=== PATIENT | female | born 1975 | race Caucasian/White ===

== ENCOUNTER 2017-11-06 15:05 | Inpatient (IN) | payer BC, OTHER ==
[~2017-11-06] VITALS: Ht 163.8 cm; Wt 49.9 kg
--- NOTE | 2017-11-06 18:31 | NUR ---
PRE ADMISSION Patient in intake office at 1800, Patient appears unkempt, racing thoughts and hyper verbal, pt with uncombed hair and odorous. Noted with avoidant eye contact. Noted with flat and depressed affect with anxious mood. Patient currently intoxicated, smells of alcohol. Patient noted with inability to sit still, fidgety, restless and anxious. BP: 130/96 HR: 100 o2 sat: 97% room air, temp: 98.2, pain level 0/10. Patient reports here to detox off of : etoh, Xanax, [place], and substance use of: methamphetamine, and marijuana. Patient repots history of seizure due to overdose. Patient reports two episodes of blackouts. Patient denies any food or drug allergies. Educated patient regarding unit policies and procedures.
[2017-11-06] MEDS ORDERED: DICL75TA5 PO (19:22)
[2017-11-06] MEDS ORDERED: VIT1TABL81 PO (19:22)
[2017-11-06] MEDS ORDERED: BUPR200T2 PO (19:22)
[2017-11-06] MEDS ORDERED: DULO30CA2 PO (19:22)
[2017-11-06] MEDS ORDERED: GABA-534 PO (19:22)
--- NOTE | 2017-11-06 19:30 | NUR ---
Start Of Shift Patient is a 42 yr old female who was admitted this evening 11/06/17 for a medically supervised withdrawal from Alcohol, Benzodiazepines, opiates and she also states she occasionally uses Methamphetamines. Patient is in her room at this time, resting on bed with eyes open, padded side rails up x2. I will continue with her initial assessment after rounds of all my patients.
[2017-11-06 20:00] VITALS: BP 127/85
[2017-11-06] MEDS ORDERED: MAGNESIUM HYDROXIDE 30 ML LIQUID UDC PO PRN (20:15)
[2017-11-06] MEDS ORDERED: BUPRENORPHINE HCL 2 MG TAB.SUBL SL PRN (20:15)
[2017-11-06] MEDS ORDERED: LOPERAMIDE HCL 2 MG CAPSULE PO PRN ×2 (20:15)
[2017-11-06] MEDS ORDERED: ACETAMINOPHEN 325 MG TABLET PO PRN (20:15)
[2017-11-06] MEDS ORDERED: ONDANSETRON 4 MG/2 ML VIAL IM PRN (20:15)
[2017-11-06] MEDS ORDERED: LORAZEPAM 1 MG TABLET PO PRN (20:15)
[2017-11-06] MEDS ORDERED: DICYCLOMINE HCL 20 MG TABLET PO PRN (20:15)
[2017-11-06] MEDS ORDERED: ONDANSETRON ODT 4 MG TAB.RAPDIS SL PRN (20:15)
[2017-11-06] MEDS ORDERED: LORAZEPAM 2 MG/1 ML VIAL IM PRN (20:15)
[2017-11-06] MEDS ORDERED: MAG HYDROX/AL HYDROX/SIMETH 30 ML LIQUID UDC PO PRN (20:15)
[2017-11-06] MEDS ORDERED: THIAMINE HCL 200 MG/2 ML VIAL IM ONE (20:15)
[2017-11-06 20:32] LABS: *URINE HCG, QUAL NEGATIVE (NEGATIVE)
[2017-11-06 20:32] LABS: *AMPHETAMINE, URINE POSITIVE (NEGATIVE); *BARBITURATE, URINE NEGATIVE (NEGATIVE); *CANNABINOID, URINE POSITIVE (NEGATIVE); *COCCAINE, URINE NEGATIVE (NEGATIVE); *OPIATE, URINE POSITIVE (NEGATIVE); *PHENCYCLIDINE SCREEN,URINE NEGATIVE (NEGATIVE)
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
[2017-11-06] MEDS: GABAPENTIN 400 MG CAPSULE PO PRN (21:27)
[2017-11-06] MEDS: IBUPROFEN 600 MG TABLET PO PRN (21:27)
[2017-11-06] MEDS: LORAZEPAM 1 MG TABLET PO PRN (21:27)
--- NOTE | 2017-11-06 21:30 | NUR ---
WA 21 patients withdrawal symptoms include : Diaphoresis , chills, bilateral hand tremors, headache,neck and hip pain, difficulty thinking clearly, she is hyperverbal and has flight of ideas and loose thoughts. Ativan 2 MG PO , Long 600 MG Po and gabapentin 400 MG PO all given as PRN's. Addendum: 11/07/17 at 0204 by BENITO JIMENEZ RN Lelo SCOTT
--- NOTE | 2017-11-06 21:30 | NUR ---
PRN Motrin 600 MG PO given for headache and neck pain 7/10 Gabapentin 400 MG PO given for neck and hip pain 7/10 Ativan 2 MG PO given for increased anxiety/agitation and CIWA 21
[2017-11-06 21:45] LABS: BASOPHILS # (AUTO) 0.1 K/uL (0.0-8.0); BASOPHILS % (AUTO) 0.9 % (0.0-2.0); EOSINOPHILS # (AUTO) 0.1 K/uL (0.0-0.7); HEMATOCRIT 41.9 % (31.2-41.9); HEMOGLOBIN 14.6 g/dL (10.9-14.3); LYMPHOCYTES # (AUTO) 1.6 K/uL (20.0-40.0); LYMPHOCYTES % (AUTO) 25.5 % (20.5-51.5); MEAN CORPUSCULAR HEMOGLOBIN 32.9 uug (24.7-32.8); MEAN CORPUSCULAR HGB CONC 35 g/dL (32.3-35.6); MEAN CORPUSCULAR VOLUME 94.6 fL (75.5-95.3); MONOCYTES # (AUTO) 0.4 K/uL (2.0-10.0); MONOCYTES % (AUTO) 7.2 % (0.0-11.0); NEUTROPHILS % (AUTO) 64.4 % (38.5-71.5); PLATELET COUNT (AUTO) 264 K/uL (179-408); RED BLOOD CELL COUNT(AUTO) 4.43 MIL/uL (3.63-4.92); WHITE BLOOD COUNT (AUTO) 6.2 K/uL (3.8-11.8)
[2017-11-06 21:57] LABS: ETHANOL < 3 MG/DL (0-0)
[2017-11-06 21:58] LABS: ALANINE AMINOTRANSFERASE 31 U/L (14-59); ALKALINE PHOSPHATASE 53 U/L (50-136); AMYLASE 72 U/L (25-115); ASPARTATE AMINOTRANSFERASE 24 U/L (15-37); BILIRUBIN,TOTAL 0.4 mg/dL (0.2-1.0); CARBON DIOXIDE 30 mmol/L (21-32); CHLORIDE 105 mmol/L (98-107); CREATININE 1.1 mg/dL (0.6-1.3); GLUCOSE 90 mg/dL (74-106); LIPASE 215 U/L (73-393); MAGNESIUM 1.9 mg/dL (1.8-2.4); POTASSIUM 4.1 mmol/L (3.5-5.1); TOTAL PROTEIN, SERUM 6.4 g/dL (6.4-8.2); UREA NITROGEN, BLOOD 11 mg/dL (7-18)
--- NOTE | 2017-11-06 22:30 | NUR ---
PRN Reassess Patient is asleep in bed, breathing even and unlabored, padded side rails up x2, call light within reach
[2017-11-06] MEDS ORDERED: HYDR25PO2 MC (22:31)
[2017-11-06 22:36] LABS: THYROID STIMULATING HORMONE 2.104 mIU/mL (0.358-3.740)
--- NOTE | 2017-11-07 | NUR ---
CIWA deferred VS deferred, patient is sound asleep in bed, breathing even and unlabored, padded side rails upx2.
--- NOTE | 2017-11-07 04:00 | NUR ---
CIWA Deferred Patient is sound asleep, breathing even and unlabored, VS deferred at this time.
--- NOTE | 2017-11-07 06:25 | NUR ---
End Of Shift: Patient is a 42 yr old female who was admitted to [facility] yesterday 11/06/17 for a medically supervised withdrawal from Alcohol, Benzodiazepines ( Xanax) and Opiates ( [place]), she also admits to smoking Meth and Marijuana, she has not been placed on any taper as of yet but has PRN Ativan and Subutex available. Patient is unkempt and disheveled, she looks malnourished and thin, she has a history of Bulimia. PRN medications given on this shift: Motrin for neck and hip pain, Gabapentin for joint pain and Ativan 2 MG PO for increased anxiety and CIWA of 21. Her withdrawal symptoms present as aches, chills, emotionally volatile, lethargy and restlessness, she has loose thoughts and flight of ideas. She had a fluid intake this shift of 1035 ML, 2 Voids and 0 BM, her last CIWA was 21 @ 2130 .She slept for 10 hours. Continue to follow MD plan of care and offer support as needed. Endorsed to day shift.
--- NOTE | 2017-11-07 08:01 | NUR ---
Start of Shift Pt is a 42 y/o F admitted on 11/06/17 for medically supervised ETOH, xanax, and norco withdrawal. Pt has not been placed on any taper yet, only prns for management of w/d. Received pt laying in bed sleeping, respirations even and unlabored. Pt has a disheveled and thin appearance. Last CIWA of 21 and pt has been given ativan 2 mg, ibuprofen, and gabapentin prns last shift. Slept 10 hrs. Side rails upx2 and padded, bed in lowest postion. Call light is within reach. Will continue to monitor.
[2017-11-07 08:03] VITALS: BP 122/84
[2017-11-07] MEDS ORDERED: TUBERCULIN,PURIF.PROT.DERIV. 5 TU/0.1 ML TEST ID ONE (09:00)
[2017-11-07] MEDS: MULTIVITAMINS,THERAPEUTIC TABLET PO SCH (09:44)
[2017-11-07] MEDS: THIAMINE HCL 100 MG TABLET PO SCH (09:44)
[2017-11-07] MEDS: FOLIC ACID 1 MG TABLET PO SCH (09:44)
[2017-11-07] MEDS: LORAZEPAM 1 MG TABLET PO PRN (09:45)
--- NOTE | 2017-11-07 09:45 | NUR ---
CIWA 20 Pt has a disheveled and thin appearance depressive and anxious mood, with an avoidant eye contact and mumbling when speaking. Pt presents anxiety, agitation, restlessness, sweating, clammy skin, tingling of the hands, headache, stomach cramps, nausea, difficulty thinking, difficulty concentrating, dysphoria and anhedonia. Ativan 2 mg po prn given with scheduled meds.
--- NOTE | 2017-11-07 09:45 | NUR ---
PRN Ativan 2 mg po prn given for CIWA 20; pt presents sweating, tingling sensation of the hands, tremors, nausea, anxiety and agitation. Will monitor and reassess.
[2017-11-07] MEDS: DULOXETINE 30 MG CAPSULE.DR PO SCH (09:53)
[2017-11-07] MEDS: buPROPion XL 150 MG TAB.SR.24H PO SCH (09:54)
[2017-11-07 12:30] VITALS: BP 122/86
--- NOTE | 2017-11-07 12:30 | NUR ---
CIWA 20 Pt continues to presents cold/hot flashes, anxiety, agitation, restlessness, sweating, clammy skin, tingling of the hands, headache, stomach cramps, nausea, difficulty thinking, difficulty concentrating, dysphoria and anhedonia. Pt also c/o neck and lower hip pain. Scheduled meds and Ativan taper to continue. Addendum: 11/07/17 at 1422 by TRISHA LAM RN CIWA 17
[2017-11-07] MEDS: METHOCARBAMOL 750 MG TABLET PO PRN (13:51)
[2017-11-07] MEDS: GABAPENTIN 400 MG CAPSULE PO PRN ×2 (13:51→20:48)
--- NOTE | 2017-11-07 13:51 | NUR ---
PRN Gabapentin 400 mg and robaxin 750 mg po prns given for neck and below the hip pain. Will monitor and reassess.
[2017-11-07] MEDS: LORAZEPAM 1 MG TABLET PO SCH ×3 (13:55→20:48)
--- NOTE | 2017-11-07 14:05 | NUR ---
Therapist prompted client to attend group therapy.
--- NOTE | 2017-11-07 14:51 | NUR ---
Reassessment Pt reports med as effective in decreasing pain intensity. Will monitor and reassess.
[2017-11-07 16:00] VITALS: BP 144/99
--- NOTE | 2017-11-07 16:00 | NUR ---
1600 CIWA deferred d/t sleep.
--- NOTE | 2017-11-07 17:39 | NUR ---
Scheduled Ativan 2 mg po for 1700 held due to pt in deep sleep. Respirations even and unlabored; RR 18. Safety measures in place. Will continue to monitor.
--- NOTE | 2017-11-07 18:35 | NUR ---
End Of Shift Pt has been isolative in room, sleeping mostly throughout the day. Last CIWA 17 @1230. Pt been placed on a 5 day ativan taper starting today. Pt has been placed on 1:1 sitter for 1 hr after meals. Gabapentin 400 mg and robaxin 750 mg po PRNS given and were effective. Pt has been given Ativan 2mg po prn for CIWA 20 @0945. Pt ate 0/25/25% of meals. Safety measures in place.
--- NOTE | 2017-11-07 19:30 | NUR ---
Start Of Shift Patient is a 42 yr old female who was admitted to [facility] on 11/06/17 for a medically supervised withdrawal from ETOH , Benzos and Opiates, she also admitted to using Meth and Marijuana occasionally, she has been placed on a 5 day Ativan taper and this is day 1. PRN medications given on this shift : Gabapentin and Robaxin, she is on a 1:1 after meals due to bulimia and a history of binging and purging. Per day shift report she has been lethargic but arousable all day. Currently she is asleep in bed, padded side rails upx2, arousable to name. Last CIWA 17 @ noon. Continue to follow MD plan of care and offer support as needed.
[2017-11-07 20:00] VITALS: BP 94/65
--- NOTE | 2017-11-07 20:00 | NUR ---
RAVI 16 Patient presents with lethargy, decreased appetite, diaphoresis, chills, pins and needles in hands, she has a sad flat affect and appears depressed. Motrin 600MG PO and Gabapentin 400mg PO given for neck/hip pain along with scheduled 2 MG Ativan PO
--- NOTE | 2017-11-07 20:00 | NUR ---
COWS 10 withdrawal symptoms include bilateral hand tremors, aching joints, piloerection and chills
[2017-11-07] MEDS: IBUPROFEN 600 MG TABLET PO PRN (20:48)
--- NOTE | 2017-11-07 20:50 | NUR ---
PRN Motrin 600mg PO and Gabapentin 400mg PO given for hip/neck pain 08/23 will monitor and reassess
--- NOTE | 2017-11-07 21:50 | NUR ---
PRN Reassess Patient is asleep in bed, breathing even and unlabored, padded side rails up x2.
--- NOTE | 2017-11-08 | NUR ---
COWS Deferred patient sound asleep in bed, breathing even and unlabored, VS and COWS deferred to allow patient to sleep uninterrupted.
--- NOTE | 2017-11-08 | NUR ---
CIWA Deferred patient sound asleep in bed, breathing even and unlabored, VS and CIWA deferred to allow patient to sleep uninterrupted.
--- NOTE | 2017-11-08 04:03 | NUR ---
CIWA/ COWS Deferred patient sound asleep in bed, breathing even and unlabored, VS and CIWA deferred to allow patient to sleep uninterrupted.
--- NOTE | 2017-11-08 06:34 | NUR ---
End Of Shift: Patient is a 42 yr old female who was admitted to [facility] on 11/06/17 for a medically supervised withdrawal from ETOH, Benzodiazepines, opiates and who also admits to using Methamphetamines and Marijuana. She has been placed on a 5 day Ativan taper and this is day 2. PRN medications given on this shift : Motrin and Gabapentin. Her withdrawal symptoms include lethargy, chills, diaphoresis, decreased appetite, restless legs , pins and needles in hands and feet and bilateral hand tremors. she has a flat depressed affect. She has slept all night and has not left her room. She had a fluid intake of 1300 ML, 2 Voids and 0 BM, her last CIWA was 16 @ 8pm. She slept for 11 hours. Continue to follow MD plan of care and offer support and encouragement as needed. Endorsed to production supervisor off shift. Addendum: 11/08/17 at 0701 by BENITO JIMENEZ RN [id number]: PRN Motrin, Robaxin and Gabapentin given
[2017-11-08] MEDS: IBUPROFEN 600 MG TABLET PO PRN ×2 (06:55→21:10)
[2017-11-08] MEDS: METHOCARBAMOL 750 MG TABLET PO PRN (06:55)
[2017-11-08] MEDS: GABAPENTIN 400 MG CAPSULE PO PRN ×2 (06:55→21:32)
--- NOTE | 2017-11-08 06:55 | NUR ---
PRN Motrin 600mg PO Robaxin 750 mg PO Gabapentin 400mg PO All given for complaints of neck/back pain/ discomfort
[2017-11-08 08:00] VITALS: BP 100/65
--- NOTE | 2017-11-08 08:20 | NUR ---
START OF SHIFT: Received Pt. A/O X 4. She is disheveled and presents with blunted affect and depressed mood. She denies S/I and H/I. She reports restlessness,anxiety,fatigue,irritability and mild body aches. Ativan taper in progress to manage s/s of w/d. RAVI 13 COWS 10 1:1 post meals r/t bulimia. She denies vomiting after meals since her admission here. Encouraged a shower today to promote wellness. Encouraged group attendance to improve coping skills and prevent relapse. Will continue to monitor and manage s/s of w/d.
[2017-11-08] MEDS: FOLIC ACID 1 MG TABLET PO SCH (09:56)
[2017-11-08] MEDS: buPROPion XL 150 MG TAB.SR.24H PO SCH (09:57)
[2017-11-08] MEDS: MULTIVITAMINS,THERAPEUTIC TABLET PO SCH (09:57)
[2017-11-08] MEDS: LORAZEPAM 1 MG TABLET PO SCH ×3 (09:57→21:10)
[2017-11-08] MEDS: THIAMINE HCL 100 MG TABLET PO SCH (09:57)
[2017-11-08] MEDS: DULOXETINE 30 MG CAPSULE.DR PO SCH (09:58)
[2017-11-08 10:11] LABS: HEPATITIS B SURFACE AG Negative (Negative)
[2017-11-08 12:00] VITALS: BP 115/81
--- NOTE | 2017-11-08 12:47 | NUR ---
COWS/CIWA Deferred as Pt is asleep.
[2017-11-08 16:00] VITALS: BP 112/73
--- NOTE | 2017-11-08 16:30 | NUR ---
COWS/CIWA Deferred. Pt is asleep. 1500 meds held.
--- NOTE | 2017-11-08 18:25 | NUR ---
END OF SHIFT: Pt continues on Ativan taper to manage s/s of w/d which include body aches,anxiety,irritability ,depression and fatigue. GARRICKWA 13 COWS 10 this AM . She slept most of shift and COWS and CIWA deferred X 2 this afternoon. 1500 meds held. She is on 1:1 post meals r/t bulimia. She did not shower as encouraged and states maybe she will later. She denies S/I and H/I. [facility].
--- NOTE | 2017-11-08 19:30 | NUR ---
START OF SHIFT Pt is a 42 yr old female admitted to [facility] for a medically supervised withdrawal from ETOH , Benzos and Opiates; continues to be on Ativan taper as ordered and has been tolerating well. Pt is on a 1:1 close observation after meals due to bulimia and a history of binging and purging. Per day shift report she has been lethargic all day. Last COWS 13; CIWA 10 this AM. Pt received in bed awake, alert and oriented x 3; disheveled and unkempt with food and clothing scattered all over her living area; c/o having low energy, feels likes I am falling apart. Also c/o feeling anxious with pain all over her body,neck and hip area.Emotional support provided, PO fluids encouraged. All safety measures in place, call light is within reach, will continue to monitor for safety.
[2017-11-08 20:00] VITALS: BP 120/90
--- NOTE | 2017-11-08 20:48 | NUR ---
PRN ZOFRAN SL GIVEN ORDERED FOR C/O NAUSEA.NO C/O VOMITING NOTED. WILL CONTINUE TO MONITOR.
[2017-11-08] MEDS: diphenhydrAMINE 50 MG CAPSULE PO PRN (21:10)
--- NOTE | 2017-11-08 21:10 | NUR ---
PRN MOTRIN GIVEN ORDERED FOR C/O GENERALIZED ACHES AND PAIN.PT IS C/O INSOMNIA,SAID " I SLEPT ALL DAY,AND NOW I AM WIDE AWAKE AND WILL NOT BE ABLE TO SLEEP".PRN BENADRYL 50 MG PO GIVEN TO HELP SLEEP.WILL MONITOR.
--- NOTE | 2017-11-08 21:32 | NUR ---
PRN NEURONTIN 400 MG PO GIVEN FOR C/O NECK AND HIP PAIN.WILL MONITOR.
--- NOTE | 2017-11-08 21:48 | NUR ---
PRN ZOFRAN IS EFFECTIVE.NAUSEA IMPROVED.
--- NOTE | 2017-11-08 22:30 | NUR ---
PRN REASSESSMENT PT IS CALM AND RESTING IN BED WITH EYES CLOSED.NO C/O PAIN OR S/S OF DISTRESS NOTED; BREATHING IS EVEN AND NON LABORED,WILL CONTINUE TO MONITOR.
[2017-11-09] VITALS: BP 112/84
--- NOTE | 2017-11-09 | NUR ---
COWS/CIWA Deferred due to Pt being asleep.
--- NOTE | 2017-11-09 04:00 | NUR ---
COWS/CIWA Deferred due to Pt being asleep; v/s refused.
--- NOTE | 2017-11-09 07:28 | NUR ---
END OF SHIFT Pt is a 42 yr old female admitted to [facility] for a medically supervised withdrawal from ETOH , Benzos and Opiates; continues to be on Ativan taper as ordered and has been tolerating well. Pt is on a 1:1 close observation after meals due to bulimia and a history of binging and purging. Last COWS 13; CIWA 9. Pt received PRN med-Zofran,Motrin,Neurontin and Benadryl with good effect;she slept 8 hours,fluid intake was 1105 mls,voided x 3. PO fluids encouraged. All safety measures in place, call light is within reach, will continue to monitor for safety.
--- NOTE | 2017-11-09 07:50 | NUR ---
START OF SHIFT NOTE Received report from night nurse 42 year old female admitted for ETOH,Benzo and Opioids withdrawal and continues on 5 Ativan taper tolerating well. Per endorsement patient received PRN Zofran, Motrin, Gabapentin,Benadryl tolerated well, slept for 8 hours and last CIWA-10,COWS-13. Received patient with blunt facial expression, anxious, agitated, bilateral hand tremors, unkempt room, dirty room linens on the floor,racing thoughts. Breathing normal no SOB noted. Skin intact warm and dry to touch. All safety measures in place call light within reach. Will cont to monitor.
[2017-11-09 08:00] VITALS: BP 115/83
[2017-11-09] MEDS: DULOXETINE 30 MG CAPSULE.DR PO SCH (09:39)
[2017-11-09] MEDS: buPROPion XL 150 MG TAB.SR.24H PO SCH (09:39)
[2017-11-09] MEDS: FOLIC ACID 1 MG TABLET PO SCH (09:39)
[2017-11-09] MEDS: MULTIVITAMINS,THERAPEUTIC TABLET PO SCH (09:39)
[2017-11-09] MEDS: THIAMINE HCL 100 MG TABLET PO SCH (09:39)
[2017-11-09] MEDS: LORAZEPAM 1 MG TABLET PO SCH ×4 (09:39→21:00)
--- NOTE | 2017-11-09 09:39 | NUR ---
CIWA/COWS ASSESSMENT CIWA-11, COWS-8, Patient has a sad flat effect, presented with anxiety, agitation, restless, diaphoresis, light headed, body aches, patient was given scheduled medications. Will cont to monitor.
--- NOTE | 2017-11-09 10:01 | NUR ---
Client was prompted to attend twice daily group therapy sessions.
[2017-11-09] MEDS: KETOROLAC TROMETHAMINE 30 MG INJ IM PRN (10:20)
--- NOTE | 2017-11-09 10:20 | NUR ---
PRN TORADOL Patient c/o bilateral hip pain 11/23, PRN Toradol 30mg IM given as ordered. Will cont to monitor and reassess.
--- NOTE | 2017-11-09 10:50 | NUR ---
TORADOL REASSESSMENT Per patient bilateral hip pain lower to 4/10 Toradol was effective.
[2017-11-09 12:00] VITALS: BP 120/88
--- NOTE | 2017-11-09 12:00 | NUR ---
CIWA/COWS ASSESSMENT CIWA-12, COWS-7, Patient continues to presented with anxiety, agitation, restless, diaphoresis, light headed, body aches, patient due for schedule medication. Will cont to monitor.
[2017-11-09 16:00] VITALS: BP 119/86
--- NOTE | 2017-11-09 16:18 | NUR ---
CIWA/COWS ASSESSMENT CIWA-11, COWS-6, Patient continues to presented with anxiety, agitation, restless, diaphoresis,pins and needles patient was given her schedule medication. Will cont to monitor.
--- NOTE | 2017-11-09 19:04 | NUR ---
END OF SHIFT NOTE Gave report to night nurse, 42 year old female admitted for ETOH and Opioids withdrawal and continues with her Ativan taper tolerating well. Patient continues to exhibit flat effect, anxious, agitated, restless, bilateral hand tremors, sweats. During shift patient was given scheduled medication and PRN Toradol, noted to be effective. Last CIWA score 11, COWS-6. Encourage patient to attend groups activities to learn new coping skills.Skin intact warm and dry to touch. All safety measures in place, call light within reach. Patient endorse to night nurse in stable condition.
--- NOTE | 2017-11-09 19:30 | NUR ---
START OF SHIFT Pt is a 42 yr old female admitted to [facility] for a medically supervised withdrawal from ETOH , Benzos and Opiates; continues to be on Ativan taper as ordered and has been tolerating well. Pt is on a 1:1 close observation after meals due to bulimia and a history of binging and purging. Last COWS 6; CIWA 11. Per report Pt was given Toradol IM for pain and it was effective.Pt received sleeping in bed, disheveled and unkempt, living area is cluttered;breathing is even and non labored,no s/s of distress noted All safety measures in place, call light is within reach, will continue to monitor for safety.
[2017-11-09 20:00] VITALS: BP 117/92
--- NOTE | 2017-11-09 20:00 | NUR ---
COWS/CIWA DEFERRED DUE TO PT BEING ASLEEP.
--- NOTE | 2017-11-09 21:00 | NUR ---
PT IS SLEEPY,REFUSED TO TAKE SCHEDULED BEDTIME MEDICATIONS.
--- NOTE | 2017-11-10 | NUR ---
COWS/CIWA DEFERRED; V/S REFUSED. PT IS IN DEEP SLEEP,ALL SAFETY MEASURES IN PACE,COWS/CIWA DEFERRED; V/S REFUSED. WILL CONTINUE TO MONITOR.
[2017-11-10] MEDS ORDERED: LORAZEPAM 1 MG TABLET PO ONE (01:15)
[2017-11-10] MEDS: KETOROLAC TROMETHAMINE 30 MG INJ IM PRN ×3 (01:24→20:03)
--- NOTE | 2017-11-10 01:24 | NUR ---
PRN MED/ONE TIME ORDER PT WOKE UP ASKING FOR MEDICATIONS,STATED " I DID NOT GET ANY MEDICATIONS".PT WAS REMINDED THAT SHE HAD REFUSED 2100 MEDS BUT SHE DENIED IT.ATIVAN 1 MG PO GIVEN ONE TIME ORDER.PT ASLO C/O PAIN IN HER NECK 11/23.PRN TORADOL 30 MG IM GIVEN ORDERED.WILL CONTINUE TO MONITOR.
--- NOTE | 2017-11-10 02:24 | NUR ---
PRN REASSESSMENT Pt is calm and resting in bed with eyes closed.PRN Toradol is effective.No c/o pain or s/s of distress noted,will continue to monitor.
--- NOTE | 2017-11-10 04:00 | NUR ---
COWS/CIWA DEFERRED; V/S REFUSED. PT IS IN DEEP SLEEP,ALL SAFETY MEASURES IN PACE,COWS/CIWA DEFERRED; V/S REFUSED. WILL CONTINUE TO MONITOR.
--- NOTE | 2017-11-10 06:51 | NUR ---
END OF SHIFT Pt is a 42 yr old female admitted to [facility] for a medically supervised withdrawal from ETOH , Benzos and Opiates; continues to be on Ativan taper as ordered and has been tolerating well. Pt is on a 1:1 close observation after meals due to bulimia and a history of binging and purging.Pt slept all night without any problem.PRN Toradol IM was given for neck and back and was effective. Pt slept 10 hours,fluid intake was 1390 mls,voided x 1. Unable to assess for COWS/CIWA due to Pt being asleep. PO fluids encouraged. All safety measures in place, call light is within reach, will continue to monitor for safety. Addendum: 11/10/17 at 0716 by JOSIE PARNELL RN LAST CIWA=11,COWS=6.
--- NOTE | 2017-11-10 07:30 | NUR ---
Start of Shift Mold Closer Helper received report on 42 year old female admitted to [facility] for medical management of ETOH, Benzodiazepine and Opiate withdrawals. Pt endorse NKA, full code and regular diet. Pt endorses chronic neck and back pain. Pt endorses history of seizures, last reported in 2007. PPH of Bipolar, Anxiety, Depression, and Bulimia with Personality DO. Pt is a 1:1 staff following meals. Pt currently on an Ativan taper. NOC reports no CIWA or COWS obtained on NOC. PRN Toradol(pain) administered on NOC, per report. Mold Closer Helper encounters pt in pts room resting with eyes closed, even and unlabored respirations noted. Bed in low position with wheels locked and side rails up x2. Will continue to monitor, support and encourage according to plan of care.
[2017-11-10 08:30] VITALS: BP 109/74
--- NOTE | 2017-11-10 09:00 | NUR ---
CIWA/COWS Deferred Pt is somnolent and lethargic and unable to participate in assessment. Credit Verification Clerk will assess upon pt becoming more receptive. Will continue to monitor, support and encourage according to plan of care.
[2017-11-10] MEDS: THIAMINE HCL 100 MG TABLET PO SCH (09:22)
[2017-11-10] MEDS: FOLIC ACID 1 MG TABLET PO SCH (09:22)
[2017-11-10] MEDS: DULOXETINE 30 MG CAPSULE.DR PO SCH (09:22)
[2017-11-10] MEDS: MULTIVITAMINS,THERAPEUTIC TABLET PO SCH (09:22)
[2017-11-10] MEDS: buPROPion XL 150 MG TAB.SR.24H PO SCH (09:23)
[2017-11-10] MEDS: LORAZEPAM 1 MG TABLET PO SCH ×3 (09:23→20:02)
--- NOTE | 2017-11-10 09:27 | NUR ---
PRN IM Toradol Pt complains of pain 11/23 due to chronic bakc and neck pain and withdrawal related myalgia. Pt states, " I have a messed up spine." Geodetic Surveyor administered medication per order with pt tolerating well. Will continue to monitor, support and encourage according to plan of care.
--- NOTE | 2017-11-10 09:30 | NUR ---
CIWA 12/COWS 10 Pt has fine tremors, diaphoresis, anxiety and restlessness. Pt complains of nausea, with no emesis or diarrhea. Pt complains of chills and body aches. Will continue to monitor, support and encourage according to plan of care.
--- NOTE | 2017-11-10 10:17 | NUR ---
Therapist prompted client to attend group therapy. Client responded that she is not interested at all in any groups or activities. Client reported that she wants to leave and attend to her family. Addendum: 11/10/17 at 1035 by APPLE SUBRAMANIAN Client was sleepy, but reported that she will attend when she is feeling better.
--- NOTE | 2017-11-10 12:00 | NUR ---
CIWA 9/COWS 10 Pt with moist skin, fine tremors and anxiety. Complains of nausea, chills and myalgia. Will continue to monitor, support and encourage according to plan of care.
[2017-11-10 12:22] VITALS: BP 96/63
[2017-11-10 16:30] VITALS: BP 97/66
--- NOTE | 2017-11-10 16:30 | NUR ---
CIWA 9/COWS 9 Pt has fine tremors, nausea, anxiety, moist skin and is restless. Pt is irritable and labile. Will continue to monitor, support and encourage according to plan of care.
--- NOTE | 2017-11-10 18:52 | NUR ---
End of Shift Truckload Owner Operator provided report on 42 year old female admitted to [facility] for medical management of ETOH, Benzodiazepine and Opiate withdrawals. Pt endorse NKA, full code and regular diet. Pt endorses chronic neck and back pain. Pt endorses history of seizures, last reported in 2007. PPH of Bipolar, Anxiety, Depression, and Bulimia with Personality DO. Pt is a 1:1 staff following meals. Pt currently on an Ativan taper. Last CIWA 9 and COWS 9, recorded at 1630. PRN Toradol(pain) administered on this shift. Pt is A/O x4 and makes her needs known. Pt is pre-occupied with internal thoughts and odd socially. Blunted affect with incongruent mood. Pt perseverates on social security paperwork and demands phone calls. Pt is anxious, restless with nausea and muscle pain. Bed in low position with wheels locked and side rails up x2.
--- NOTE | 2017-11-10 19:30 | NUR ---
START OF SHIFT Received 42 year old female patient admitted on 11/06/17 for ETOH, Benzodiazepine and Opiate withdrawal. Pt is alert and oriented x4. She appears to be disheveled and is noted with anxiety, restlessness, body aches, poor eye contact, and chills. She complains of neck and hand achy pain 9/10. She is currently receiving a 5 day Ativan taper and is tolerating well. Per endorsement, she received PRN Toradol. Last COWS: 9, CIWA:9 at 1600. Breathing is even and unlabored, safety measures in place. Will continue to monitor.
[2017-11-10 20:00] VITALS: BP 121/78
--- NOTE | 2017-11-10 20:00 | NUR ---
COWS/CIWA Pt complains of anxiety, restlessness, chills, sweats, and body aches. COWS:10, CIWA: 13. Will continue to monitor.
[2017-11-10] MEDS: diphenhydrAMINE 50 MG CAPSULE PO PRN (20:02)
[2017-11-10] MEDS: METHOCARBAMOL 750 MG TABLET PO PRN (20:02)
--- NOTE | 2017-11-10 20:03 | NUR ---
PRN TORADOL,ROBAXIN, BENADRYL Pt complains of 9/10 hands and lower neck achy pain. Pt also complains of body aches and difficulty falling asleep. PRN Toradol, Robaxin and Benadryl administered as ordered. Will monitor effectiveness. Addendum: 11/11/17 at 0434 by SAWYER KILPATRICK RN Pt also had complaints of heartburn and was given Maalox.
--- NOTE | 2017-11-10 20:33 | NUR ---
PRN TORADOL REASSESSMENT PRN medication effective. Pt is lying in bed with eyes closed and is noted to be asleep. No facial grimacing noted. Breathing is even and unlabored, safety measures in place. Will monitor.
--- NOTE | 2017-11-10 21:03 | NUR ---
PRN ROBAXIN/BENADRYL REASSESSMENT PRN medications effective. Pt is lying in bed with eyes closed and is noted to be asleep. Breathing is even and unlabored, safety measures in place. Will monitor.
[2017-11-11] VITALS: BP 115/72
--- NOTE | 2017-11-11 | NUR ---
COWS/CIWA DEFERRED 0000 COWS/CIWA deferred d/t pt lying in bed with eyes closed and is noted to be asleep. Breathing even and unlabored, safety measures in place. Will monitor.
--- NOTE | 2017-11-11 04:00 | NUR ---
VITALS REFUSED, COWS/CIWA DEFERRED 0400 vitals refused. COWS and CIWA deferred. Pt lying in bed with eyes closed and is noted to be asleep. Breathing even and unlabored, safety measures in place, will continue to monitor.
--- NOTE | 2017-11-11 07:10 | NUR ---
END OF SHIFT Pt is a 42 year old female patient admitted on 11/06/17 for ETOH, Benzodiazepine and Opiate withdrawal. She remains alert and oriented x4. She was noted with anxiety, restlessness, body aches, poor eye contact, and chills. She complains of neck and hand achy pain 9/10 during the shift. She continues on a 5 day Ativan taper and is tolerating well At 2002 she received PRN medications of Toradol, Benadryl, Robaxin and Maalox. Last COWS: 10, CIWA:13 at 1999. Breathing is even and unlabored, safety measures in place. Endorsed to AM shift.
--- NOTE | 2017-11-11 07:15 | NUR ---
Start Of Shift Report received from slot shift manager nurse. Pt is a 42 year old female patient admitted on 11/06/17 for ETOH, Benzodiazepine and Opiate withdrawal. Per slot shift manager nurse, pts last COWS was 10, CIWA was 13 Pt slept for 9 hours. Pt continues on 5 day Ativan taper to manage withdrawal symptoms. Upon start of shift, pt was in bed under the blanket and refused to come out. Pt presented with agitation anxiety and fatigue. Pt being observed by 1:1 sitter post meals related to bulimia. Pt arousals to name. During assessment, Pt is AOx4. Pt stated can I just please get my medication, I just feel tired want to take my medication and want to go back to sleep. Pts room was messy with clothes on the floor and snack wraps all over the table and floor. Educated pt about plan of care for the day. Pt encouraged to attend group and activities during the day. Pt encouraged to drink plenty of fluids in order to help with detox process. Bed in lowest position. Side rails up x2. Call light functioning and within reach. All needs attended and met.
[2017-11-11 08:00] VITALS: BP 105/70
--- NOTE | 2017-11-11 08:00 | NUR ---
CIWA 11/COWS 9 Pt has fine tremors, nausea, anxiety, moist skin and is restless. Pt is irritable and labile. Will continue to monitor, support and encourage according to plan of care.
[2017-11-11] MEDS: FOLIC ACID 1 MG TABLET PO SCH (08:42)
[2017-11-11] MEDS: buPROPion XL 150 MG TAB.SR.24H PO SCH (08:42)
[2017-11-11] MEDS: DULOXETINE 60 MG CAPSULE.DR PO SCH (08:42)
[2017-11-11] MEDS: THIAMINE HCL 100 MG TABLET PO SCH (08:43)
[2017-11-11] MEDS: MULTIVITAMINS,THERAPEUTIC TABLET PO SCH (08:43)
[2017-11-11] MEDS: LORAZEPAM 1 MG TABLET PO SCH ×2 (08:43→20:23)
[2017-11-11] MEDS ORDERED: DULOXETINE 30 MG CAPSULE.DR PO SCH (09:00)
[2017-11-11] MEDS: KETOROLAC TROMETHAMINE 30 MG INJ IM PRN ×2 (09:16→15:28)
--- NOTE | 2017-11-11 09:17 | NUR ---
PRN Pt complained of generalized pain and pain in the neck rating it 8/10 pt given Toradol IM 30mg, pt tolerated well shot given in right gluteus maryanne, no blood upon aspiration. Will continue to monitor
--- NOTE | 2017-11-11 10:17 | NUR ---
PRN REASSESSMENT Pt verbalized decrease in pain to 5/10 , all needs met will continue to monitor
[2017-11-11 12:00] VITALS: BP 102/64
--- NOTE | 2017-11-11 12:00 | NUR ---
CIWA 10/COWS 10 Pt has fine tremors, diaphoresis, anxiety and restlessness. Pt complains of chills and body aches. pt has generalized pain. Pt encouraged to drink more fluids to help with detox process. Will continue to monitor, support and encourage according to plan of care.
[2017-11-11 16:00] VITALS: BP 122/83
--- NOTE | 2017-11-11 16:30 | NUR ---
PRN REASSESSMENT Pt verbalized decrease in pain to 6/10 , all needs met will continue to monitor
--- NOTE | 2017-11-11 19:17 | NUR ---
End of Shift Report given to night worker nurse, Plan of care followed, Vital signs monitored closely Q4H. Withdrawals symptoms were closely monitored, medications given as schedule. Initial CIWA 11 COWS 9. Pt encouraged adequate PO fluid intake as tolerated. Pt presented with sweats flushed face anxiety and tremors during the day. Pt received all of the scheduled medications. Pt received PRN Toradol IM x2 for pain in neck and generalized pain which was effective. Last CIWA 10 COWS 9. Pt reported that Ativan has been working well at controlling the withdrawal symptoms. Pt ate all of the meals. Pt attended all the groups and activities to learn new coping skills to prevent relapse. Pt denies any SI/HI. All safety measures in place, bed in lowest locked position, call light within reach. All needs met and attended.
--- NOTE | 2017-11-11 19:18 | NUR ---
Start of shift note Received report from day shift nurse. Pt is a 42 yo female, A+Ox4, presenting to [facility] for medically supervised ETOH/Benzo/Opiate withdrawal. Pt was also using Methamphetamine and Marijuana. Pt noted to be withdrawn, agitated, anxious, and fatigued. Pt has HX of Bipolar, personality disorder, anxiety, depression, bulimia, and chronic neck/hip pain which will be monitored during shift. Pt is on 5 day Ativan taper, tolerated well. Respirations even and unlabored. Will continue to monitor.
[2017-11-11 20:12] VITALS: BP 114/76
--- NOTE | 2017-11-11 20:12 | NUR ---
COWS and CIWA Assessment COWS: 9 and CIWA: 9. Pt noted with pulse 68, chills, sweat on brow, restlessness, mild diffuse discomfort, stuffy nose, stomach cramps, fine tremors, yawning, anxiety, and agitation. Respirations even and unlabored. Will continue to monitor.
[2017-11-11] MEDS: diphenhydrAMINE 50 MG CAPSULE PO PRN (20:23)
--- NOTE | 2017-11-11 20:23 | NUR ---
PRN Benadryl Pt c/o inability to sleep and requested for PRN Benadryl. Medication given and tolerated well. Will reassess within 1 HR. Will continue to monitor.
--- NOTE | 2017-11-11 21:20 | NUR ---
PRN Benadryl Reassessment Medication effective. Pt is resting well in bed. No s/s of ASE noted at this time. Respirations even and unlabored. Will continue to monitor.
--- NOTE | 2017-11-12 00:15 | NUR ---
V/S refused and COWS and CIWA deferred for sleep. Respirations even and unlabored. Will continue to monitor.
--- NOTE | 2017-11-12 04:35 | NUR ---
V/S refused and COWS and CIWA deferred for sleep. Respirations even and unlabored. Will continue to monitor.
--- NOTE | 2017-11-12 07:00 | NUR ---
End of shift note Pt was continuously noted with fatigue, anxiety, and agitation. Pt remained in room for majority of shift except to get food from kitchen. Pt remained cooperative and compliant with all aspects of treatment. Pt was given PRN Benadryl @2022. Pt is on 5 day Ativan taper, tolerated well. Pt slept for a total of 9 HRS. Last COWS: 9 and Last CIWA: 9 @2011. Respirations even and unlabored. Will endorse to day shift nurse.
--- NOTE | 2017-11-12 07:38 | NUR ---
BEGINNING OF SHIFT Patient endorsement report received from welder 2nd shift nurse, all pertinent information was discussed. Patient with admitting Dx: ETOH/BZO/opiate withdrawal. Patient also with substance use of: methamphetamine. Patient completed 5 day ativan taper as ordered, continues under close observation. Patient received PRN:Benadryl, as ordered, well tolerated. Patient, slept for 9 hours. Last cow score of: 9, last ciwa score of: 9. Safety measures are in place. call light with in reach, patient received awake, alert and oriented x4, educated regarding plan of care for the day and medication regimen with good verbal understanding. Safety measures are in place. call light with in reach, will continue to monitor closely.
[2017-11-12 08:20] VITALS: BP 112/76
[2017-11-12] MEDS: buPROPion XL 150 MG TAB.SR.24H PO SCH (08:40)
[2017-11-12] MEDS: DULOXETINE 60 MG CAPSULE.DR PO SCH (08:40)
[2017-11-12] MEDS: THIAMINE HCL 100 MG TABLET PO SCH (08:40)
[2017-11-12] MEDS: MULTIVITAMINS,THERAPEUTIC TABLET PO SCH (08:40)
[2017-11-12] MEDS: FOLIC ACID 1 MG TABLET PO SCH (08:40)
[2017-11-12] MEDS: CLONIDINE HCL 0.1 MG TABLET PO PRN (08:45)
[2017-11-12] MEDS: HYDROXYZINE PAMOATE 25 MG CAPSULE PO PRN (08:45)
--- NOTE | 2017-11-12 08:45 | NUR ---
COW/CIWA ASSESSMENT PRN CLONIDINE/VISTARIL Patient awake, alert and oriented x4, noted with anxious mood and anxious affect. Has avoidant eye contact, Noted pre-occupied and worried. Provided with non pharmacological interventions as needed. Patient presented with the following s/sx of withdrawal: chills, difficulty sitting still, fidgety, emotional volatility, generalized discomfort, myalgia, arthralgias, moist eyes, abdominal cramps, tremors that can be felt, irritable, agitation, and increase anxiety. Patient with COW score of: 9, and CIWA score of: 8. Non pharmacological interventions were ineffective, patient administered Clonidine and Vistaril for increase anxiety, and agitation, will monitor effectiveness of medication. Will continue to monitor.
--- NOTE | 2017-11-12 09:45 | NUR ---
CLONIDINE/VISTARIL REASSESSMENT Medication effective, patient verbalized feeling less anxious. Encouraged patient to attend group therapies/sessions to learn new coping skills to prevent relapse. Will continue to monitor.
--- NOTE | 2017-11-12 11:05 | NUR ---
PRN TORADOL Patient reported increase in pain to back area, 8/10, provided with non pharmacological interventions with no relief, administered Toradol Inj as ordered, well tolerated, will monitor effectiveness of medication.
[2017-11-12] MEDS: KETOROLAC TROMETHAMINE 30 MG INJ IM PRN ×2 (11:06→20:46)
--- NOTE | 2017-11-12 11:35 | NUR ---
TORADOL REASSESSMENT Patient reports medication effective at reducing pain level, current pain level 5/10 will continue to monitor.
[2017-11-12 12:18] VITALS: BP 98/57
--- NOTE | 2017-11-12 13:00 | NUR ---
COW/CIWA ASSESSMENT still noted exhibiting the following s/sx: chills, difficulty sitting still, fidgety, emotional volatility, generalized discomfort, myalgia, arthralgias, moist eyes, abdominal cramps, tremors that can be felt, irritable, agitation, and increase anxiety. Patient with COW score of: 9, and CIWA score of: 8. Will continue to monitor.
--- NOTE | 2017-11-12 16:04 | NUR ---
COW/CIWA ASSESSMENT Patient continues to present the following s/sx of withdrawal: chills, difficulty sitting still, fidgety, emotional volatility, generalized discomfort, myalgia, arthralgias, moist eyes, abdominal cramps, tremors that can be felt, irritable, agitation, and increase anxiety. Patient with COW score of: 9, and CIWA score of: 8. Will continue to monitor.
[2017-11-12 16:59] VITALS: BP 99/62
--- NOTE | 2017-11-12 18:56 | NUR ---
END OF SHIFT Patient continues under close observation, During shift Patient presented with the following s/sx of withdrawal: chills, difficulty sitting still, fidgety, emotional volatility, generalized discomfort, myalgia, arthralgias, moist eyes, abdominal cramps, tremors that can be felt, irritable, agitation, and increase anxiety. Patient with last COW score of: 9, and last CIWA score of: 8 completed 5 day Ativan taper as ordered, continues under observation. Patient received PRN: Clonidine and Vistaril at 0845 for increase anxiety/agitation, medications effective one hour post administration, and received PRN Toradol for severe back pain 8/10, medication effective. Patient noted isolative, prefers to stay in room, encouraged patient to attend group therapies/sessions to learn new coping skills to prevent relapse.Encouraged to socialize with others and participating in group activities. Noted with anxious mood and anxious affect. Has avoidant eye contact, Noted pre-occupied and worried. Patient encouraged to practice self soothing techniques such as progressive muscle relaxation. Denies SI/HI. Encouraged to express self as needed. Safety measures are in place. Call light with in reach, patient endorsed to shift boss nurse, all pertinent information was discussed.
--- NOTE | 2017-11-12 19:16 | NUR ---
Start of shift note Received report from day shift nurse. Pt is a 42 yo female, A+Ox4, presenting to [facility] for medically supervised ETOH/Benzo/Opiate withdrawal. Pt was also using Methamphetamine and Marijuana. Pt noted with fatigue, anxiety, and agitation. Pt has HX of bipolar, personality disorder, anxiety, depression, bulimia, and chronic neck/hip pain. Pt has completed 5 day Ativan taper, tolerated well, but continues on PRN medications. Respirations even and unlabored. Will continue to monitor.
[2017-11-12 20:11] VITALS: BP 110/78
--- NOTE | 2017-11-12 20:11 | NUR ---
COWS and CIWA Assessment COWS: 10 and CIWA: 9. Pt noted with pulse 80, chills, restlessness, enlarged pupils, severe diffuse discomfort, stuffy nose, stomach cramps, fine tremors, anxiety, agitation, and sweat on brow. Respirations even and unlabored. Will continue to monitor.
[2017-11-12] MEDS: diphenhydrAMINE 50 MG CAPSULE PO PRN (20:46)
--- NOTE | 2017-11-12 20:46 | NUR ---
PRN Toradol and Benadryl Pt c/o back/neck pain 9/10 and inability to sleep and requested for PRN Toradol and Benadryl. Medications given and tolerated well. Will reassess within 1 HR. Will continue to monitor.
--- NOTE | 2017-11-12 21:40 | NUR ---
PRN Toradol and Benadryl Reassessment Pt expresses reduction of back/neck pain to 5/10. Pt is resting well in bed. No s/s of ASE noted at this time. Respirations even and unlabored. Will continue to monitor.
--- NOTE | 2017-11-13 00:20 | NUR ---
V/S refused and COWS and CIWA deferred for sleep. Respirations even and unlabored. Will continue to monitor.
--- NOTE | 2017-11-13 04:24 | NUR ---
V/S refused and COWS and CIWA deferred for sleep. Respirations even and unlabored. Will continue to monitor.
[2017-11-13] MEDS: HYDROXYZINE PAMOATE 25 MG CAPSULE PO PRN (05:24)
--- NOTE | 2017-11-13 05:24 | NUR ---
PRN Vistaril Administration Pt reports feelings of anxiety. Vistaril 25mg PRN administered. Safety measures in place, will continue to monitor.
--- NOTE | 2017-11-13 06:01 | NUR ---
PRN Vistaril Reassessment Medication effective. Pt expresses reduction or anxiety. No s/s of ASE noted at this time. Respirations even and unlabored. Will continue to monitor.
--- NOTE | 2017-11-13 06:59 | NUR ---
End of shift note Pt was continuously noted with anxiety, agitation, and restlessness. Pt remained in room for entire shift. Pt remained cooperative and compliant with all aspects of treatment. Pt was given PRN Toradol and Benadryl @2045 and PRN Vistaril @0524. Pt has completed 5 day Ativan taper, tolerated well, and still remains on PRN medications until further order. Pt slept for a total of 9 HRS. Last COWS: 10 and Last CIWA: 9 @2010. Respirations even and unlabored. Will endorse to day shift nurse.
--- NOTE | 2017-11-13 07:53 | NUR ---
BEGINNING OF SHIFT Patient endorsement report received from analytic manager nurse, all pertinent information was discussed. Patient with admitting Dx: ETOH/BZO/opiate withdrawal. Patient also with substance use of: methamphetamine. Patient completed 5 day ativan taper as ordered, continues under close observation. Patient received PRN:Benadryl, Toradol, and Vistaril, as ordered, well tolerated. Patient, slept for 9 hours. Last cow score of: 10, last ciwa score of: 9. Safety measures are in place. call light with in reach, patient received awake, alert and oriented x4, educated regarding plan of care for the day and medication regimen with good verbal understanding. Safety measures are in place. call light with in reach, will continue to monitor closely.
[2017-11-13 08:54] VITALS: BP 117/77
[2017-11-13] MEDS: DULOXETINE 60 MG CAPSULE.DR PO SCH (08:57)
[2017-11-13] MEDS: MULTIVITAMINS,THERAPEUTIC TABLET PO SCH (08:57)
[2017-11-13] MEDS: FOLIC ACID 1 MG TABLET PO SCH (08:57)
[2017-11-13] MEDS: CLONIDINE HCL 0.1 MG TABLET PO PRN (08:58)
[2017-11-13] MEDS: THIAMINE HCL 100 MG TABLET PO SCH (08:58)
[2017-11-13] MEDS: buPROPion XL 150 MG TAB.SR.24H PO SCH (08:58)
--- NOTE | 2017-11-13 09:00 | NUR ---
COW/CIWA ASSESSMENT Patient awake, in bed, room appearance noted with clothes thrown on floor, spilled drinks, garbage around room, and hoarding crackers. Noted with inability to perform ADL's without prompting. Patient was offered a linen change and refused. Patient is disheveled, unkempt, with uncombed hair. Patient with avoidant eye contact, has anxious/irritable facial expression. Noted with agitated affect, and anxious mood. Patient has racing thoughts and is hyperverbal. Easily agitated, and argumentative at times, requires frequent redirection and non pharmacological interventions as needed. Patient reports poor sleep pattern, with difficulty staying asleep and difficulty falling asleep, will notify Psychiatrist. During assessment patient noted exhibiting the following s/sx of withdrawal: chills, mild bone an joint aches, abdominal cramps, tremors that can be felt but not seen, anxiety and agitation, patient with COW score of: 8, and CIWA score of: 10. Continues under close observation, will continue to monitor.
[2017-11-13] MEDS: KETOROLAC TROMETHAMINE 30 MG INJ IM PRN ×2 (09:03→21:19)
--- NOTE | 2017-11-13 09:03 | NUR ---
PRN TORADOL/CLONIDINE Patient reported increase in pain to back area, 8/10, provided with non pharmacological interventions with no relief. Patient also reported feeling increase anxiety and agitation, no relief after calming reassurance. administered Toradol Inj as ordered, well tolerated, and administered Clonidine 0.1mg as ordered will monitor effectiveness of medication.
--- NOTE | 2017-11-13 09:33 | NUR ---
TORADOL REASSESSMENT Patient reports medication effective at reducing pain level, current pain level 5/10 will continue to monitor.
--- NOTE | 2017-11-13 10:03 | NUR ---
CLONIDINE REASSESSMENT Medication effective, patient verbalized feeling less anxious and less agitated. Encouraged patient to attend group therapies/sessions to learn new coping skills to prevent relapse. Will continue to monitor.
[2017-11-13 13:43] VITALS: BP 104/66
[2017-11-13] MEDS ORDERED: TRAZODONE 50 MG TABLET PO PRN (14:00)
[2017-11-13] MEDS: MIRALAX 17 GM POWD.PACK PO PRN (16:45)
[2017-11-13 17:00] VITALS: BP 132/92
--- NOTE | 2017-11-13 18:59 | NUR ---
END OF SHIFT Monitored patient closely during shift, continues under close observation. During shift noted room appearance noted with clothes thrown on floor, spilled drinks, garbage around room, and hoarding crackers. Noted with inability to perform ADL's without prompting. Patient was offered a linen change and refused. Patient is disheveled, unkempt, with uncombed hair, encouraged to self groom and maintain personal area. Patient with avoidant eye contact, has anxious/irritable facial expression. Noted with agitated affect, and anxious mood. Patient has racing thoughts and is hyperverbal. Easily agitated, and argumentative at times, requires frequent redirection and non pharmacological interventions as needed. Encourage to socialize with others, and participate in group activities. Patient also encouraged to participate in therapy sessions to learn new coping skills to prevent relapse, Patient reports poor sleep pattern, with difficulty staying asleep and difficulty falling asleep, psychiatrist is aware, patient encouraged to avoid caffeine after 1500 and limit daytime naps. During assessment patient noted exhibiting the following s/sx of withdrawal: chills, mild bone an joint aches, abdominal cramps, tremors that can be felt but not seen, anxiety and agitation, patient with last COW score of: 8, and last CIWA score of: 10. Continues under close observation, will continue to monitor. Patient endorsed to rubber tile floor layer nurse, all pertinent information was discussed.
--- NOTE | 2017-11-13 19:12 | NUR ---
Start of shift note Received report from day shift nurse. Pt is a 42 yo female, A+Ox4, presenting to [facility] for medically supervised ETOH/Benzo/Opiate withdrawal. Pt was also using Methamphetamine and Marijuana. Pt noted with restlessness, agitation, and anxiety. Pt has HX of personality disorder, bipolar, anxiety, depression, bulimia, and chronic neck and hip pain. Pt has completed 5 day Ativan taper, tolerated well, but continues on PRN medications. Respirations even and unlabored. Will continue to monitor.
[2017-11-13 20:10] VITALS: BP 111/76
--- NOTE | 2017-11-13 20:10 | NUR ---
COWS and CIWA Assessment COWS: 8 and CIWA: 8. Pt noted with pulse 64, chills, sweat on brow, severe diffuse discomfort, stuffy nose, stomach cramps, fine tremors, anxiety, and agitation. Respirations even and unlabored. Will continue to monitor.
[2017-11-13] MEDS: TRAZODONE 50 MG TABLET PO PRN (21:19)
--- NOTE | 2017-11-13 21:19 | NUR ---
PRN Toradol and Trazodone Pt c/o back pain 8/10 and inability to sleep and requested for PRN Toradol and Trazodone. Medications given and tolerated well. Will reassess within 1 HR. Will continue to monitor.
--- NOTE | 2017-11-13 22:10 | NUR ---
PRN Toradol and Trazodone Reassessment Medications effective. Pt expresses reduction in back pain to 4/10. Pt is resting well in bed. No s/s of ASE noted at this time. Respirations even and unlabored. Will continue to monitor.
--- NOTE | 2017-11-14 00:15 | NUR ---
V/S refused and COWS and CIWA deferred for sleep. Respirations even and unlabored. Will continue to monitor.
--- NOTE | 2017-11-14 04:54 | NUR ---
V/S refused and COWS and CIWA deferred for sleep. Respirations even and unlabored. Will continue to monitor.
--- NOTE | 2017-11-14 07:00 | NUR ---
End of shift note Pt was continuously noted with anxiety, agitation, and restlessness. Pt remained in room for majority of shift except to get food from kitchen, to go smoke on smoking patio, and to interact with other patients in recreational room. Pt remained compliant and cooperative with all aspects of treatment. Pt was given PRN Trazodone @8384. Pt is on 5 day Valium taper, tolerated well. Pt slept for a total of 7 HRS. Last CIWA: 11 @2010. Respirations even and unlabored. Will endorse to day shift nurse.
--- NOTE | 2017-11-14 07:00 | NUR ---
End of shift note Pt was continuously noted with restlessness, agitation, and anxiety. Pt remained in room for majority of shift except to get food from kitchen and to go smoke on smoking patio. Pt remained cooperative and compliant with all aspects of treatment. Pt was given PRN Toradol and Trazodone @2118. Pt continues on PRN medications, tolerated well. Pt slept for a total of 10 HRS. Last COWS: 8 and Last CIWA: 8 @2009. Respirations even and unlabored. Will endorse to day shift nurse. Addendum: 11/14/17 at 0716 by LALIT LEI LVN Error, incorrect patient
--- NOTE | 2017-11-14 07:43 | NUR ---
BEGINNING OF SHIFT Patient received awake, alert and oriented x4, educated regarding plan of care for the day and medication regimen with good verbal understanding. Received endorsement report from white mixing operator nurse, all pertinent information was discussed. Patient with admitting Dx: ETOH/BZO/opiate withdrawal. Patient also with substance use of: methamphetamine. Patient completed 5 day Ativan taper as ordered, continues under close observation. Patient received PRN:Benadryl, Toradol, and Vistaril, as ordered, well tolerated. Patient, slept for 10 hours. Last cow score of: 8, last ciwa score of: 8. Safety measures are in place. call light with in reach, Call light with in reach, will continue to monitor closely.
[2017-11-14] MEDS: MULTIVITAMINS,THERAPEUTIC TABLET PO SCH (08:55)
[2017-11-14] MEDS: CLONIDINE HCL 0.1 MG TABLET PO PRN (08:55)
[2017-11-14] MEDS: DULOXETINE 60 MG CAPSULE.DR PO SCH (08:55)
[2017-11-14] MEDS: HYDROXYZINE PAMOATE 25 MG CAPSULE PO PRN (08:55)
[2017-11-14] MEDS: FOLIC ACID 1 MG TABLET PO SCH (08:55)
[2017-11-14] MEDS: THIAMINE HCL 100 MG TABLET PO SCH (08:55)
[2017-11-14] MEDS: buPROPion XL 150 MG TAB.SR.24H PO SCH (08:55)
--- NOTE | 2017-11-14 08:55 | NUR ---
PRN VISTARIL/CLONIDINE Patient presented with increase anxiety and agitation, noted with angry facial expression and anxious affect, patient administered Clonidine and Vistaril for increase anxiety, and agitation, will monitor effectiveness of medication. Will continue to monitor.
--- NOTE | 2017-11-14 09:00 | NUR ---
COW/CIWA ASSESSMENT Patient noted exhibiting the following s/sx of withdrawal: anxiety, agitation, mild bone and joint aches, c/o chills, emotional volatility, and generalized discomfort. COW score of: 7, and CIWA score of: 7, Will continue to monitor.
[2017-11-14 09:28] VITALS: BP 97/68
[2017-11-14] MEDS: KETOROLAC TROMETHAMINE 30 MG INJ IM PRN (12:44)
--- NOTE | 2017-11-14 12:44 | NUR ---
PRN Medication Pt. laying in bed, disheveled with linens cluttered about and falling off the bed. Pt. is currently complaining of generalize body aches 10/23. PRN Toradol IM given at this time. Will continue to monitor pt. for medication effectiveness and safety.
--- NOTE | 2017-11-14 13:14 | NUR ---
TORADOL REASSESSMENT Patient reports medication effective, decrease in pain level, current pain level 5/10, will continue to monitor.
[2017-11-14 13:30] VITALS: BP 90/66
--- NOTE | 2017-11-14 13:36 | NUR ---
COW/CIWA ASSESSMENT Patient continues to present the following s/sx of withdrawal: anxiety, agitation, mild bone and joint aches, c/o chills, emotional volatility, and generalized discomfort. COW score of: 7, and CIWA score of: 7, Will continue to monitor.
[2017-11-14 16:47] VITALS: BP 109/76
--- NOTE | 2017-11-14 16:48 | NUR ---
COW/CIWA ASSESSMENT Patient still noted with: anxiety, agitation, mild bone and joint aches, c/o chills, emotional volatility, and generalized discomfort. COW score of: 7, and CIWA score of: 7, Will continue to monitor.
--- NOTE | 2017-11-14 19:10 | NUR ---
END OF SHIFT Patient alert and oriented x4, continues under close observation, during shift patient exhibited the following s/sx of withdrawal: anxiety, agitation, mild bone and joint aches, c/o chills, emotional volatility, and generalized discomfort.last COW score of: 7, and last CIWA score of: 7. Completed taper and continues under observation. During shift noted room appearance noted with clothes thrown on floor, spilled drinks, garbage around room, and hoarding food. Noted with inability to perform ADL's without prompting. Patient is disheveled, with uncombed hair, encouraged to self groom and maintain personal area. Noted with labile affect, and anxious mood. At times with angry outburst and crying, requires frequent redirection and calming reassurance. Patient is hyperverbal at times. Encouraged to participate in group activities. Patient also encouraged to participate in therapy sessions to learn new coping skills to prevent relapse, All scheduled medications administered as ordered, during shift patient received PRN: clonidine and Vistaril, medications were effective. Continues under close observation, will continue to monitor. Patient endorsed to senior instructor nurse, all pertinent information was discussed.
--- NOTE | 2017-11-14 19:30 | NUR ---
Start of shift note Pt is a 42 y.o female admitted on 11/06/2017 for ETOH, benzodiazepines and opiate withdrawal. Patient has completed her Ativan taper. Last COWS and CIWA reported as 7. Patient is on 1:1 after meals to monitor for voluntary vomiting of food intake. Upon rounds at the beginning of the shift patient was sitting at the edge of her bed looking at the wall, flat affect. Patient's speech is pressured and blunt, patient is anxious, fidgeting in bed. Patient is disheveled, pulling pants up and down, odor in room from patient passing gas. Patient denied needing anything at this time, call light within reach.
--- NOTE | 2017-11-14 20:00 | NUR ---
COWS/CIWA ASSESSMENT COWS at 8 and CIWA at 11. Patient anxious and agitated, fidgeting in bed.
[2017-11-14 20:19] VITALS: BP 97/59
[2017-11-14] MEDS: IBUPROFEN 600 MG TABLET PO PRN (20:50)
[2017-11-14] MEDS: TRAZODONE 50 MG TABLET PO PRN (20:50)
[2017-11-14] MEDS: METHOCARBAMOL 750 MG TABLET PO PRN (20:50)
--- NOTE | 2017-11-14 20:50 | NUR ---
BEHAVIORAL NOTE/PRN NOTE Patient reported that her shoulders, neck and bottom are aching from positioning in bed, chair throughout the day. Patient rates her pain at an 8 out of 10. Patient laying in bed watching TV, no facial grimacing observed. Pt questioning nurse in a paranoid sense about workflow. Patient questions answered appropriately and then redirected pt to focus on options for pain intervention. Patient offered Robaxin and Motrin as ordered, patient verbally agreed and nodded head. Second nurse present by the patient room door. This nurse retrieved the Robaxin and Motrin, administered to patient, patient took the medication without any concern/complaint or questions. Right after consuming the medication, the patient stated, "Now I want my Toradol injection, I'm in fucking pain!" repeatedly. Pt was made aware that the effectiveness of the Motrin ad Robaxin needs to take place prior to administration of additional PRN med. Patient became loud, using foul language, displaying high levels of agitation by getting out of bed and walking up to nurses in a threatening manner. Both nurses present at bedside during patient's verbal abuse and mocking of staff, patient redirected by [employer] nursery supervisor. Patient also requested PRN Trazodone to help her sleep, administered alongside Motrin and Robaxin.
--- NOTE | 2017-11-14 21:50 | NUR ---
PRN REASSESSMENT Pt in bed with eyes closed, resp even and non labored.
--- NOTE | 2017-11-15 | NUR ---
COWS/CIWA REASSESSMENT Refused, in bed with eyes closed.
--- NOTE | 2017-11-15 04:54 | NUR ---
COWS/CIWA Deferred, pt in bed with eyes closed. Resp. even and non labored. Call light within reach.
--- NOTE | 2017-11-15 07:00 | NUR ---
END OF SHIFT REPORT Pt is a 42 y.o female admitted on 11/06/2017 for ETOH, benzodiazepines and opiate withdrawal. Last COWS 8 and CIWA 11. Patient is on 1:1 after meals to monitor for voluntary vomiting of food intake. Patient tossing and turning in bed throughout the night. Call light within reach.
--- NOTE | 2017-11-15 07:30 | NUR ---
Start of shift Last COWS 8 CIWA 11 at 1999. Pt completed 5 day Ativan taper. Patient is on 1:1 after meals to monitor for voluntary vomiting of food intake. Pt A&O x4. Pt presents with restlessness, anxiety, labile, agitation and generalized body aches and pains. Pt c/o symptoms that are out of proportion to exam. Pt slept 3 hours last night. Encouraged Pt to participate in group activities, socialize with others and identify positive coping skills to maintain sobriety. Seizure and Fall precautions and all safety measures in place. Side rails up x2. Call light functioning and within reach. All needs attended and met. Will continue to assess for withdrawal symptoms.
[2017-11-15 08:02] VITALS: BP 91/55
--- NOTE | 2017-11-15 08:10 | NUR ---
COWS at 6 and CIWA at 9. Patient anxious and agitated, labile and c/o generalized body aches.
[2017-11-15] MEDS: MULTIVITAMINS,THERAPEUTIC TABLET PO SCH (08:42)
[2017-11-15] MEDS: DULOXETINE 60 MG CAPSULE.DR PO SCH (08:42)
[2017-11-15] MEDS: FOLIC ACID 1 MG TABLET PO SCH (08:42)
[2017-11-15] MEDS: buPROPion XL 150 MG TAB.SR.24H PO SCH (08:42)
[2017-11-15] MEDS: THIAMINE HCL 100 MG TABLET PO SCH (08:42)
[2017-11-15] MEDS: GABAPENTIN 400 MG CAPSULE PO PRN ×2 (08:48→21:04)
[2017-11-15] MEDS: METHOCARBAMOL 750 MG TABLET PO PRN (08:48)
[2017-11-15] MEDS: IBUPROFEN 600 MG TABLET PO PRN ×2 (08:48→20:52)
--- NOTE | 2017-11-15 08:49 | NUR ---
PRN Ibuprofen 600 mg po for chronic neck and bilateral hip pain #7/10, throbbing PRN Gabapentin 400 mg PO for neck and hip pain PRN Robaxin 750 mg po for generalized body aches.
--- NOTE | 2017-11-15 09:15 | NUR ---
Pt 1:1 after meals to make sure she doesn't vomit breakfast r/t her eating disorder. Pt ate 50%. Staffed observed her for 1 hour. She did not vomit breakfast.
--- NOTE | 2017-11-15 10:00 | NUR ---
Reassess Ibuprofen, Gabapentin and Robaxin- Pt states neck and bilateral hip pain diminished a little. Her pain is chronic and now pain level #4-5/10.
--- NOTE | 2017-11-15 10:20 | NUR ---
Therapist prompted client to attend group therapy.
[2017-11-15] MEDS: MIRALAX 17 GM POWD.PACK PO PRN (10:32)
--- NOTE | 2017-11-15 10:33 | NUR ---
OSCAR Miralax for constipation. Pt reports last BM was 3 days ago. Addendum: 11/15/17 at 1034 by Tita Elliott RN 17 grams PO mixed in juice
[2017-11-15 12:00] VITALS: BP 125/98
--- NOTE | 2017-11-15 12:05 | NUR ---
COWS 6 and CIWA 9- Patient remains labile, anxious and agitated. She also c/o generalized body aches. Pt c/o symptoms that are out of proportion to exam.
[2017-11-15] MEDS ORDERED: GABA-536 PO (12:11)
[2017-11-15] MEDS ORDERED: VALA500T PO (12:27)
--- NOTE | 2017-11-15 14:01 | NUR ---
Pt 1:1 after meals to make sure she doesn't vomit her lunch. Pt ate 50%. Staffed observed her for 1 hour after her meal.
[2017-11-15 16:10] VITALS: BP 160/108
--- NOTE | 2017-11-15 16:15 | NUR ---
COWS 6 and CIWA 9- Patient c/o anxiety and irritable. Blood pressure elevate 160/108. She also c/o generalized body aches.
[2017-11-15] MEDS: CLONIDINE HCL 0.1 MG TABLET PO PRN (16:45)
--- NOTE | 2017-11-15 16:45 | NUR ---
PRN Clonidine 0.1 mg PO for Bp 160/108, HR 72.
[2017-11-15 17:45] VITALS: BP 112/81
--- NOTE | 2017-11-15 17:45 | NUR ---
Reassess clonidine- BP now 112/81, HR 80. Medication effective.
--- NOTE | 2017-11-15 18:32 | NUR ---
End of shift Last COWS 6 CIWA 9 at 1600. Pt completed 5 day Ativan taper. Pt scheduled for discharge tomorrow to [facility]. Patient is on 1:1 after meals to monitor for voluntary vomiting of food intake. Pt ate all her meals with no purging today. Pt presents with restlessness, anxiety, and labile. PRN given today were Ibuprofen, Gabapentin, Robaxin, Clonidine, and Miralax. Encouraged Pt to participate in group activities, socialize with others and identify positive coping skills to maintain sobriety. Pt did participate in both group therapy sessions today. PO fluids 3240ml, voids x10, no BM. Seizure and Fall precautions and all safety measures in place. Side rails up x2. Call light functioning and within reach. All needs attended and met. Will continue to assess for withdrawal symptoms. Endorsed to PM shift.
--- NOTE | 2017-11-15 19:15 | NUR ---
START OF SHIFT Patient is a 42-year-old female admitted on 11/06/17 for ETOH and benzodiazepine withdrawal, with concurrent opiate use ([place]) for the past 5 months . Patient has completed a 5-day Ativan taper, tolerated well, scheduled for discharge tomorrow. Patient's last COWS was 6, last CIWA was 9, per endorsement. Patient received the following PRN medications today: ibuprofen, Gabapentin, Robaxin, miralax and clonidine. All PRNs were noted to be effective with exception to the miralax. Upon assessment, patient appears disheveled and anxious, room is very cluttered. Patient is alert and oriented x4. Patient complains of difficulty sleeping and chronic neck and hip pain. Patient is on fall and seizure precautions with positive seizure history, last seizure was in 2007. Safety measures in place, side rails up x2, bed locked in low position, call light within reach. Will continue to monitor.
[2017-11-15 20:00] VITALS: BP 123/84
[2017-11-15] MEDS: TRAZODONE 50 MG TABLET PO PRN (20:52)
--- NOTE | 2017-11-15 20:52 | NUR ---
PRN TRAZODONE, MILK OF MAG, & IBUPROFEN Patient reports difficulty sleeping and requests sleep aid. Patient reports that she still has not had a bowel movement and is requesting MOM. Patient reports neck pain 7/10 on pain scale. PRN Trazodone, Milk of magnesia, and ibuprofen give PO. Safety measures in place, side rails up x2, bed locked in low position, call light within reach. Will monitor for effectiveness.
--- NOTE | 2017-11-15 21:04 | NUR ---
PRN GABAPENTIN Patient reports neck and hip pain and states that PRN gabapentin has been effective in relieving the pain. PRN gabapentin given PO. Safety measures in place, call light within reach. Will monitor for effectiveness.
--- NOTE | 2017-11-15 21:52 | NUR ---
PRN TRAZODONE, MILK OF MAG, & IBUPROFEN REASSESSMENT Patient reports that neck pain has improved, 4/10 on pain scale. Patient reports no BM within the last hour. Patient feels sleepy and states, "I'm going to bed now." PRN Trazodone and ibuprofen effective at this time; will monitor for BM. Safety measures in place, side rails up x2, bed locked in low position, call light within reach. Will continue to monitor.
--- NOTE | 2017-11-15 22:04 | NUR ---
PRN GABAPENTIN REASSESSMENT Patient reports that neck and hip pain have improved; 4/10 on pain scale. PRN gabapentin effective. Safety measures in place, side rails up x2, bed locked in low position, call light within reach. Will continue to monitor.
[2017-11-16] VITALS: BP 116/78
--- NOTE | 2017-11-16 | NUR ---
COWS & CIWA DEFERRED COWS and CIWA deferred at this time due to patient sleeping; to be assessed and scored while patient is awake. Safety measures in place, side rails up x2, bed locked in low position, call light within reach. Will continue to monitor.
--- NOTE | 2017-11-16 04:00 | NUR ---
VITALS REFUSED, COWS & CIWA DEFERRED Patient refused to be disturbed for 0400 vitals because she wanted to sleep well and be woken up at 0630 to prepare for discharge. COWS and CIWA deferred at this time due to patient sleeping; to be assessed and scored while patient is awake. Safety measures in place, side rails up x2, bed locked in low position, call light within reach. Will continue to monitor.
--- NOTE | 2017-11-16 06:30 | NUR ---
COWS 7, CIWA 7 Patient reports feeling ready for discharge, "anxiety is manageable" and patient feels rested. Current COWS 7, current CIWA 7. Safety measures in place, side rails up x2, bed locked in low position, call light within reach. Will continue to monitor.
--- NOTE | 2017-11-16 07:15 | NUR ---
END OF SHIFT Patient is a 42-year-old female admitted on 11/06/17 for ETOH and benzodiazepine withdrawal, with concurrent opiate use ([place]) for the past 5 months . Patient has completed a 5-day Ativan taper, tolerated well, scheduled for discharge today. Patient's last COWS was 7, last CIWA was 7. Patient received the following PRN medications: ibuprofen, Gabapentin, Robaxin, Trazodone and Milk of Mag. All PRNs were noted to be effective with exception to the MOM. Patient slept for 9 hours, total intake of 1,000mL, void x3, stool x0. Patient is on fall and seizure precautions with positive seizure history, last seizure was in 2007. Safety measures in place, side rails up x2, bed locked in low position, call light within reach. Will endorse to day shift.
--- NOTE | 2017-11-16 07:30 | NUR ---
START OF SHIFT NOTE Received report from night nurse 42 year old female admitted for ETOH,Benzo and Opioids withdrawal and completed her 5 Ativan taper tolerated well. Per endorsement patient received PRN Motrin, MOM, gabapentin, Trazodone tolerated well, slept for 9 hours and last CIWA-7,COWS-7. Received patient with flat facial, anxious, agitated, bilateral hand tremors, unkempt room, unkempt room, racing thoughts. Breathing normal no SOB noted. Skin intact warm and dry to touch. Patient set for discharge today. patient is motivated being discharge. All safety measures in place call light within reach. Will cont to monitor.
[2017-11-16 08:00] VITALS: BP 111/74
[2017-11-16] MEDS: MULTIVITAMINS,THERAPEUTIC TABLET PO SCH (08:27)
[2017-11-16] MEDS: THIAMINE HCL 100 MG TABLET PO SCH (08:27)
[2017-11-16] MEDS: FOLIC ACID 1 MG TABLET PO SCH (08:27)
[2017-11-16] MEDS: buPROPion XL 150 MG TAB.SR.24H PO SCH (08:27)
[2017-11-16] MEDS: DULOXETINE 60 MG CAPSULE.DR PO SCH (08:28)
--- NOTE | 2017-11-16 09:26 | NUR ---
DISCHARGE NOTE Patient discharge from [facility] in stable condition. Patient denies any SI/HI. Vital signs WNL. Skin intact warm and dry tot touch. All discharge paper work completed signed and dated. Patient returned all his belongings including his personal items medications and prescriptions. Patient left to [facility] in stable condition on 11/16/17 @0926. notified.
== END 2017-11-16 09:26 | disposition other institution (70) | DRG 895 ==
LOC: EDSEX 17:14 → SRC 17:14
PROVIDERS: ADMIT Family Medicine Addiction Medicine; ATTEND Family Medicine Addiction Medicine
PROC: HZ2ZZZZ Detoxification Services for Substance Abuse Treatment (ICD-10-PCS; principal; 2017-11-06)
PROC: HZ31ZZZ Individual Counseling for Substance Abuse Treatment, Behavioral (ICD-10-PCS; 2017-11-09)
PROC: HZ41ZZZ Group Counseling for Substance Abuse Treatment, Behavioral (ICD-10-PCS; 2017-11-13)
DX: F10.230 Alcohol dependence with withdrawal, uncomplicated (principal); F11.23 Opioid dependence with withdrawal; F50.2 Bulimia nervosa; F31.32 Bipolar disorder, current episode depressed, moderate; Y90.0 Blood alcohol level of less than 20 mg/100 ml; F13.239 Sedative, hypnotic or anxiolytic dependence with withdrawal, unspecified; G89.29 Other chronic pain; F41.9 Anxiety disorder, unspecified; F12.90 Cannabis use, unspecified, uncomplicated; Z81.1 Family history of alcohol abuse and dependence; Z59.0 Homelessness; M54.5 Low back pain; M16.0 Bilateral primary osteoarthritis of hip; M47.9 Spondylosis, unspecified; Z87.891 Personal history of nicotine dependence; Z87.820 Personal history of traumatic brain injury; Z91.19 Patient's noncompliance with other medical treatment and regimen; F15.10 Other stimulant abuse, uncomplicated; B00.9 Herpesviral infection, unspecified; G47.00 Insomnia, unspecified
CPT/HCPCS: 36415; 70030-TC; 80307; 80324; 80349; 80361; 83690; 83735; 84443; 84703; 85025; 86592; 86705; 86803; 87340; 87806; A4663; G0480; J1885; J3411; Q0162; Q0163